=== PATIENT | male | born 2000 | race Caucasian/White ===

== ENCOUNTER 2024-12-01 01:12 | Emergency (ER) | payer SELFPAY ==
[2024-12-01 01:13] VITALS: BP 182/107; PULSE 106; RESP 16; TEMP 37.4; O2SAT 97
--- NOTE | 2024-12-01 01:14 | ED.GENADUL_ITS ---
Discharge Plan Disposition Patient Disposition: [facility] Condition: Good Discharge Details Clinical Impression: Encounter for medical assessment Primary Care Provider: Unknown,Unknown ED Provider: Luci Echevarria Home Meds and New Rx's Prescriptions: No Action No Known Home Meds Discharge Instructions Additional Instructions: Return to the emergency department if you develop symptoms and would like to be evaluted. HPI General Date/Time Provider Initiated Documentation: 12/01/24 01:13 . Limitations to Documentation: no limitations . Information obtained by: patient . HPI Narrative: 24yo previously healthy [facility] Patient denies any complaints, symptoms, or concerns and states he would not sought medical attention for himself. Denies fevers, chills, rash, nausea, vomiting, abdominal pain, chest pain, shortness of breath, numbness, weakness, or other concerns. Feels entirely in his usual state of health. Related Data Home Medications ?Medication ?Instructions ?Recorded ?Confirmed Unknown [No Known Home Meds] 12/01/24 1 Allergies Allergy/AdvReac Type Severity Reaction Status Date / Time No Known Allergies Allergy Unverified 12/01/24 01:26 Review of Systems Narrative: see HPI Exam Narrative Exam Narrative: General: Alert, well appearing, well nourished, in no acute distress. Head: Normocephalic, atraumatic Neck: Trachea midline, ?Neck supple. ENT: ?MMM.? Cardiac: ?RRR, no murmurs appreciated Resp: No respiratory distress. CTAB. Abd: ?Soft, non-distended, nontender Extremities: No peripheral edema. Neurologic: GCS 15. ? Moves all extremities freely against gravity Medical Decision Making 24yo previously healthy male presenting in [facility] custody for medical evaluation. Patient denies any complaints, symptoms, or concerns and states he would not have sought medical attention for himself. Denies fevers, chills, rash, nausea, vomiting, abdominal pain, chest pain, shortness of breath, numbness, weakness, or other concerns. Feels entirely in his usual state of health. Hypertensive and slightly tachcyardiac on arrival, vital signs otherwise reassuring. Patient states he has never been arrested before and is anxious. Repeat VS improved without intervention, HR 90's, SBP 140s. No medical complaints that require evaluation. Discharged to police custody. He was encouraged to followup with his PCP regarding his blood pressure and to return to the emergency department should he have any symptoms for which he would like to be evaluated. PFSH All Active Problems (Updated 12/01/24 @ 01:48 by Luci Echevarria MD) Encounter for medical assessment (Acute) Social History Smoking/Tobacco Use Status: Current every day Tobacco Type: e-cigarettes Smoking risk assessment performed?: Yes Alcohol Intake: current Alcohol Intake frequency: a few times a week Drug use: Occasionally Substance use type: marijuana
[2024-12-01 01:17] VITALS: BP 182/107; PULSE 106; RESP 16; TEMP 37.4; O2SAT 97
[2024-12-01 01:39] VITALS: BP 165/101; PULSE 106; O2SAT 97
[2024-12-01 01:48] VITALS: BP 148/103; PULSE 98
== END 2024-12-01 01:50 ==
PROVIDERS: Emergency Provider Student in an Organized Health Care Education/Training Program
DX: Z71.1 Person with feared health complaint in whom no diagnosis is made
CPT/HCPCS: 99282; 99285